=== PATIENT | female | born 1955 | race Caucasian/White ===

== ENCOUNTER 2024-10-23 15:21 | Emergency (ER) | payer MEDICARE ==
[~2024-10-23] VITALS: Ht 160 cm; Wt 109.3 kg
[2024-10-23] MEDS: BACTRIM 160MG/800MG DS TAB PO ONE (19:25)
[2024-10-23] MEDS ORDERED: BACT800T5 PO (20:34)
[2024-10-23 20:47] VITALS: BP 159/68; TEMP 97; O2SAT 96
== END 2024-10-23 20:49 | disposition home or self-care (01) ==
LOC: M ED 15:21
DX: L03.012 Cellulitis of left finger (principal); I10 Essential (primary) hypertension; Z88.2 Allergy status to sulfonamides; Z88.6 Allergy status to analgesic agent; Z88.1 Allergy status to other antibiotic agents; Z88.8 Allergy status to other drugs, medicaments and biological substances; Z79.2 Long term (current) use of antibiotics